=== PATIENT | male | born 1960 | race Two or more races ===

== ENCOUNTER 2021-11-20 12:49 | Inpatient (IN) | payer MEDICAID ==
[~2021-11-20] VITALS: Ht 154.9 cm; Wt 72.5 kg
[2021-11-20 14:21] LABS: Basophils # (auto) 0.1 10 ^3/uL (0-0.2); Basophils % (auto) 1.3 % (0.0-2.0); Eosinophils # (auto) 0.1 10 ^3/uL (0-0.8); Eosinophils % (auto) 1.8 % (0.0-7.0); Hematocrit 45.3 % (41.0-53.0); Hemoglobin 14.6 g/dL (13.5-17.5); Lymphocytes # (auto) 2.2 10 ^3/uL (0.4-5.4); Lymphocytes % (auto) 29.9 % (10.0-50.0); Mean Corpuscular Hemoglobin 28.9 pg (28.0-32.0); Mean Corpuscular Hgb Conc. 32.2 g/dL (32.0-36.0); Mean Corpuscular Volume 89.7 fL (80.0-100.0); Monocytes # (auto) 0.6 10 ^3/uL (0-1.3); Monocytes % (auto) 8.9 % (0.0-12.0); Neutrophils # (auto) 4.2 10 ^3/uL (1.6-8.6); Neutrophils % (auto) 58.1 % (37.0-80.0); Nucleated Red Blood Cells % 0.1 %; Red Blood Cells 5.06 10^6/uL (4.5-5.90); Red Cell Distribution Width 14.3 % (11.8-14.3); White Blood Cell 7.2 10^3/uL (4.4-10.8)
[2021-11-20 14:33] LABS: Albumin 3.2 g/dL (3.4-5.0); Calcium 8.2 mg/dL (8.5-10.1); Potassium 3.9 mmol/L (3.5-5.1)
[2021-11-20 14:36] LABS: BUN/Creatinine Ratio 10.1; Bilirubin, Total 1.1 mg/dL (0.2-1.0); Total Protein 6.7 g/dL (6.4-8.2)
[2021-11-20] MEDS ORDERED: SODIUM CHLORIDE 0.9% 1,000 ML IV ONE ×2 (15:00)
[2021-11-20] MEDS ORDERED: AMIODARONE HCL 150 MG in D5W 5% 100 ML IV ONE ×2 (15:00→18:45)
[2021-11-20] MEDS ORDERED: ASPirin 81 mg TAB PO ONE (15:00)
[2021-11-20] MEDS ORDERED: NITROGLYCERIN 0.4 MG SL TAB SL PRN (17:15)
[2021-11-20] MEDS ORDERED: MORPHINE SULFATE INJ 2 MG/ml SYRG IV PRN ×2 (17:15→18:00)
[2021-11-20] MEDS ORDERED: traMADol HCL 50 MG TAB PO PRN (18:00)
[2021-11-20] MEDS ORDERED: PROMETHAZINE HCL 25 MG/ML 1ML IV PRN (18:00)
[2021-11-20] MEDS ORDERED: DEXTROSE (50%) 50ML SYRG IV PRN (18:00)
[2021-11-20] MEDS ORDERED: TEMAZEPAM 15 MG CAP PO PRN (18:00)
[2021-11-20] MEDS ORDERED: SODIUM CHLORIDE 0.9% 1,000 ML IV SCH (18:00)
[2021-11-20] MEDS ORDERED: LACTULOSE 20Gm/30ML SOLN PO PRN (18:00)
[2021-11-20] MEDS ORDERED: ACETAMINOPHEN 500 MG TAB PO PRN (18:00)
[2021-11-20] MEDS: ENOXAPARIN SOD 80 MG/0.8ML SYRINGE SC SCH ×2 (18:05→23:23)
[2021-11-20] MEDS ORDERED: AMIODARONE 450mg/250ml AE 250 ML IV SCH (19:00)
[2021-11-20] MEDS: PHENYLEPHRINE IV 250 ML IV SCH (23:38)
[2021-11-21] VITALS (46 sets, daily range): BP systolic 84–117; BP diastolic 53–85
[2021-11-21] MEDS: ACCU-CHEK COMFORT CURVE STRIP VI SCH ×5 (01:50→22:34)
[2021-11-21 01:51] LABS: INR 1.39 (0.9-1.15); Partial Thromboplastin Time 27.7 sec (24.6-33.4)
[2021-11-21] MEDS ORDERED: IOHEXOL 350 MG/ML 100ML IJ ONE (03:14)
[2021-11-21] MEDS ORDERED: ALBUMIN 25% 100 ML IV ONE (03:30)
[2021-11-21 05:10] LABS: Albumin 2.6 g/dL (3.4-5.0); Calcium 7.8 mg/dL (8.5-10.1); Potassium 4.2 mmol/L (3.5-5.1)
[2021-11-21 05:15] LABS: BUN/Creatinine Ratio 9.8; Bilirubin, Total 2.4 mg/dL (0.2-1.0); Total Protein 5.6 g/dL (6.4-8.2)
[2021-11-21] MEDS ORDERED: MIDAZOLAM HCL 2MG/2ML 2ml VIAL (1mg/ml) IV ONE (05:21)
[2021-11-21] MEDS ORDERED: MIDAZOLAM HCL 5 MG/ML-1ML VIAL ONE (05:22)
[2021-11-21] MEDS ORDERED: AMIODARONE 450mg/250ml AE 250 ML IV SCH (06:12)
[2021-11-21] MEDS: PHENYLEPHRINE IV 250 ML IV SCH ×5 (07:30→22:35)
[2021-11-21] MEDS ORDERED: ASPirin 81 mg TAB PO SCH (10:00)
[2021-11-21] MEDS: ENOXAPARIN SOD 80 MG/0.8ML SYRINGE SC SCH ×2 (10:07→22:34)
[2021-11-21] MEDS: ASPirin 81 mg TAB PO SCH (10:08)
[2021-11-21] MEDS: PANTOPRAZOLE 40 MG TAB PO SCH (10:08)
[2021-11-21] MEDS ORDERED: AMIODARONE HCL 200 MG TAB PO ONE (15:30)
[2021-11-21] MEDS: AMIODARONE HCL 200 MG TAB PO SCH (22:00)
[2021-11-22] VITALS (89 sets, daily range): BP systolic 95–124; BP diastolic 62–86
[2021-11-22] MEDS: PHENYLEPHRINE IV 250 ML IV SCH ×6 (02:04→23:37)
[2021-11-22] MEDS: ACCU-CHEK COMFORT CURVE STRIP VI SCH ×4 (06:58→22:18)
[2021-11-22] MEDS ORDERED: FUROSEMIDE 20 MG/2 ML VIAL IV ONE ×2 (09:15)
[2021-11-22] MEDS: PANTOPRAZOLE 40 MG TAB PO SCH (09:32)
[2021-11-22] MEDS: ASPirin 81 mg TAB PO SCH (09:32)
[2021-11-22] MEDS: AMIODARONE HCL 200 MG TAB PO SCH ×2 (09:32→22:18)
[2021-11-22] MEDS: ENOXAPARIN SOD 80 MG/0.8ML SYRINGE SC SCH ×2 (09:33→22:18)
[2021-11-22 10:38] LABS: Basophils # (auto) 0 10 ^3/uL (0-0.2); Basophils % (auto) 0.3 % (0.0-2.0); Eosinophils # (auto) 0 10 ^3/uL (0-0.8); Eosinophils % (auto) 0.2 % (0.0-7.0); Hematocrit 46.4 % (41.0-53.0); Hemoglobin 14.8 g/dL (13.5-17.5); Lymphocytes # (auto) 2.4 10 ^3/uL (0.4-5.4); Lymphocytes % (auto) 21.9 % (10.0-50.0); Mean Corpuscular Hemoglobin 29.3 pg (28.0-32.0); Mean Corpuscular Volume 91.5 fL (80.0-100.0); Monocytes # (auto) 1.1 10 ^3/uL (0-1.3); Monocytes % (auto) 9.9 % (0.0-12.0); Neutrophils # (auto) 7.4 10 ^3/uL (1.6-8.6); Neutrophils % (auto) 67.7 % (37.0-80.0); Nucleated Red Blood Cells % 0.1 %; Red Blood Cells 5.07 10^6/uL (4.5-5.90); Red Cell Distribution Width 14.6 % (11.8-14.3)
[2021-11-22 10:55] LABS: Albumin 3.2 g/dL (3.4-5.0); Calcium 7.7 mg/dL (8.5-10.1)
[2021-11-22 11:04] LABS: BUN/Creatinine Ratio 15.2; Total Protein 6.1 g/dL (6.4-8.2)
[2021-11-22 12:57] LABS: Urine Bacteria NONE SEEN /hpf (None Seen); Urine Blood Negative /uL (Negative); Urine Specific Gravity 1.009 (1.001-1.035); Urine WBC <1 /hpf (0 - 3)
[2021-11-22 13:04] LABS: Alcohol, Urine < 3.0 mg/dL (0-10); Amphetamine Screen, Urine NEGATIVE (NEGATIVE); Barbiturate Scree,Urine NEGATIVE (NEGATIVE); Benzodiazephine Screen, Urine NEGATIVE (NEGATIVE); Cannabinoid Screen, Urine NEGATIVE (NEGATIVE); Cocaine Screen, Urine NEGATIVE (NEGATIVE); Opiate Scree,Urine NEGATIVE (NEGATIVE); Phencyclidine Screen, Urine NEGATIVE (NEGATIVE)
[2021-11-22] MEDS ORDERED: FUROSEMIDE 20 MG/2 ML VIAL IV SCH (18:00)
[2021-11-22] MEDS: FUROSEMIDE 20 MG/2 ML VIAL IV SCH (18:22)
[2021-11-23] VITALS (87 sets, daily range): BP systolic 92–117; BP diastolic 62–89
[2021-11-23] MEDS: PHENYLEPHRINE IV 250 ML IV SCH ×5 (03:39→21:07)
[2021-11-23 03:56] LABS: Basophils # (auto) 0.3 10 ^3/uL (0-0.2); Basophils % (auto) 2.4 % (0.0-2.0); Eosinophils # (auto) 0 10 ^3/uL (0-0.8); Eosinophils % (auto) 0.2 % (0.0-7.0); Hematocrit 46.2 % (41.0-53.0); Lymphocytes % (auto) 24.9 % (10.0-50.0); Mean Corpuscular Hemoglobin 29.3 pg (28.0-32.0); Mean Corpuscular Hgb Conc. 32.3 g/dL (32.0-36.0); Mean Corpuscular Volume 90.6 fL (80.0-100.0); Monocytes # (auto) 1.2 10 ^3/uL (0-1.3); Monocytes % (auto) 9.9 % (0.0-12.0); Neutrophils # (auto) 7.7 10 ^3/uL (1.6-8.6); Neutrophils % (auto) 62.6 % (37.0-80.0); Nucleated Red Blood Cells % 0.3 %; Red Cell Distribution Width 14.6 % (11.8-14.3); White Blood Cell 12.3 10^3/uL (4.4-10.8)
[2021-11-23 04:15] LABS: BUN/Creatinine Ratio 20.1
[2021-11-23] MEDS: FUROSEMIDE 20 MG/2 ML VIAL IV SCH ×2 (05:40→17:28)
[2021-11-23] MEDS: ACCU-CHEK COMFORT CURVE STRIP VI SCH ×4 (06:49→21:39)
[2021-11-23] MEDS: ASPirin 81 mg TAB PO SCH (09:41)
[2021-11-23] MEDS: AMIODARONE HCL 200 MG TAB PO SCH ×2 (09:41→21:33)
[2021-11-23] MEDS: PANTOPRAZOLE 40 MG TAB PO SCH (09:41)
[2021-11-23] MEDS: ENOXAPARIN SOD 80 MG/0.8ML SYRINGE SC SCH ×2 (09:41→21:33)
[2021-11-24] VITALS (95 sets, daily range): BP systolic 88–112; BP diastolic 61–87
[2021-11-24] MEDS: PHENYLEPHRINE IV 250 ML IV SCH ×2 (02:38→22:00)
[2021-11-24 04:16] LABS: Basophils # (auto) 0.1 10 ^3/uL (0-0.2); Eosinophils # (auto) 0.1 10 ^3/uL (0-0.8); Eosinophils % (auto) 0.5 % (0.0-7.0); Hemoglobin 14.4 g/dL (13.5-17.5); Lymphocytes # (auto) 2.2 10 ^3/uL (0.4-5.4); Lymphocytes % (auto) 19.3 % (10.0-50.0); Mean Corpuscular Hemoglobin 29.3 pg (28.0-32.0); Mean Corpuscular Hgb Conc. 32.7 g/dL (32.0-36.0); Mean Corpuscular Volume 89.8 fL (80.0-100.0); Monocytes % (auto) 9.1 % (0.0-12.0); Neutrophils # (auto) 7.9 10 ^3/uL (1.6-8.6); Neutrophils % (auto) 70.1 % (37.0-80.0); Nucleated Red Blood Cells % 0.7 %; Red Cell Distribution Width 14.5 % (11.8-14.3); White Blood Cell 11.3 10^3/uL (4.4-10.8)
[2021-11-24 04:32] LABS: BUN/Creatinine Ratio 23.7; Calcium 7.6 mg/dL (8.5-10.1)
[2021-11-24] MEDS: ACCU-CHEK COMFORT CURVE STRIP VI SCH ×4 (05:21→21:54)
[2021-11-24] MEDS: FUROSEMIDE 20 MG/2 ML VIAL IV SCH ×2 (06:05→17:31)
[2021-11-24] MEDS: PANTOPRAZOLE 40 MG TAB PO SCH (08:55)
[2021-11-24] MEDS: AMIODARONE HCL 200 MG TAB PO SCH ×2 (08:55→21:54)
[2021-11-24] MEDS: ASPirin 81 mg TAB PO SCH (08:55)
[2021-11-24] MEDS: ENOXAPARIN SOD 80 MG/0.8ML SYRINGE SC SCH ×2 (08:56→21:54)
[2021-11-24] MEDS: InsuLIN REG 1unit/0.01ml Soln (100units/ml) SC SCH ×3 (11:30→21:58)
[2021-11-25] VITALS (79 sets, daily range): BP systolic 94–119; BP diastolic 63–87
[2021-11-25 03:47] LABS: Basophils # (auto) 0.1 10 ^3/uL (0-0.2); Basophils % (auto) 1.3 % (0.0-2.0); Eosinophils # (auto) 0.2 10 ^3/uL (0-0.8); Eosinophils % (auto) 1.9 % (0.0-7.0); Hematocrit 43.4 % (41.0-53.0); Hemoglobin 14.2 g/dL (13.5-17.5); Lymphocytes # (auto) 2.2 10 ^3/uL (0.4-5.4); Lymphocytes % (auto) 26.2 % (10.0-50.0); Mean Corpuscular Hemoglobin 29.5 pg (28.0-32.0); Mean Corpuscular Hgb Conc. 32.6 g/dL (32.0-36.0); Mean Corpuscular Volume 90.3 fL (80.0-100.0); Monocytes % (auto) 11.5 % (0.0-12.0); Neutrophils # (auto) 4.9 10 ^3/uL (1.6-8.6); Neutrophils % (auto) 59.1 % (37.0-80.0); Nucleated Red Blood Cells % 0.3 %; Red Cell Distribution Width 14.5 % (11.8-14.3); White Blood Cell 8.3 10^3/uL (4.4-10.8)
[2021-11-25 04:09] LABS: Albumin 2.8 g/dL (3.4-5.0); Calcium 7.6 mg/dL (8.5-10.1); Potassium 3.8 mmol/L (3.5-5.1)
[2021-11-25 04:18] LABS: BUN/Creatinine Ratio 17.4; Bilirubin, Total 2.3 mg/dL (0.2-1.0); Total Protein 5.7 g/dL (6.4-8.2)
[2021-11-25] MEDS: FUROSEMIDE 20 MG/2 ML VIAL IV SCH ×2 (05:38→18:06)
[2021-11-25] MEDS: InsuLIN REG 1unit/0.01ml Soln (100units/ml) SC SCH ×4 (05:39→23:11)
[2021-11-25] MEDS: ACCU-CHEK COMFORT CURVE STRIP VI SCH ×4 (05:39→23:12)
[2021-11-25] MEDS: AMIODARONE HCL 200 MG TAB PO SCH ×2 (10:52→23:08)
[2021-11-25] MEDS: ASPirin 81 mg TAB PO SCH (10:53)
[2021-11-25] MEDS: PANTOPRAZOLE 40 MG TAB PO SCH (10:53)
[2021-11-25] MEDS: ENOXAPARIN SOD 80 MG/0.8ML SYRINGE SC SCH (10:53)
[2021-11-25 11:31] LABS: Hepatitis B Surface Antibody Positive (Negative)
[2021-11-25 12:02] LABS: Hepatitis A Total Antibody Positive (Negative)
[2021-11-25 13:33] LABS: Hepatitis C Antibody Negative (Negative)
[2021-11-25] MEDS: CARVEDILOL 3.125 MG TAB PO SCH (23:09)
[2021-11-25] MEDS: SACUBITRIL-VALSARTAN 24mg/26mg TAB PO SCH (23:10)
[2021-11-25] MEDS: APIXABAN 5 MG TAB PO SCH (23:10)
[2021-11-26 05:00] VITALS: BP 103/71
[2021-11-26] MEDS: FUROSEMIDE 20 MG/2 ML VIAL IV SCH ×2 (05:28→18:00)
[2021-11-26] MEDS: InsuLIN REG 1unit/0.01ml Soln (100units/ml) SC SCH ×3 (05:47→17:00)
[2021-11-26] MEDS: ACCU-CHEK COMFORT CURVE STRIP VI SCH ×3 (05:48→17:00)
[2021-11-26 05:53] LABS: BUN/Creatinine Ratio 15.4; Calcium 8.1 mg/dL (8.5-10.1); Potassium 3.6 mmol/L (3.5-5.1)
[2021-11-26 06:03] LABS: Basophils # (auto) 0.1 10 ^3/uL (0-0.2); Basophils % (auto) 1.1 % (0.0-2.0); Eosinophils # (auto) 0.2 10 ^3/uL (0-0.8); Eosinophils % (auto) 2.6 % (0.0-7.0); Hematocrit 42.7 % (41.0-53.0); Hemoglobin 14.1 g/dL (13.5-17.5); Lymphocytes # (auto) 1.9 10 ^3/uL (0.4-5.4); Lymphocytes % (auto) 28.3 % (10.0-50.0); Mean Corpuscular Hemoglobin 29.7 pg (28.0-32.0); Mean Corpuscular Hgb Conc. 33.1 g/dL (32.0-36.0); Mean Corpuscular Volume 89.6 fL (80.0-100.0); Monocytes # (auto) 0.6 10 ^3/uL (0-1.3); Monocytes % (auto) 8.9 % (0.0-12.0); Neutrophils % (auto) 59.1 % (37.0-80.0); Nucleated Red Blood Cells % 0.3 %; Red Blood Cells 4.77 10^6/uL (4.5-5.90); Red Cell Distribution Width 14.6 % (11.8-14.3); White Blood Cell 6.8 10^3/uL (4.4-10.8)
[2021-11-26 09:00] VITALS: BP 95/64
[2021-11-26] MEDS: CARVEDILOL 3.125 MG TAB PO SCH (10:00)
[2021-11-26] MEDS: SACUBITRIL-VALSARTAN 24mg/26mg TAB PO SCH (10:00)
[2021-11-26] MEDS: ASPirin 81 mg TAB PO SCH (11:52)
[2021-11-26] MEDS: AMIODARONE HCL 200 MG TAB PO SCH (11:53)
[2021-11-26] MEDS: APIXABAN 5 MG TAB PO SCH (11:55)
[2021-11-26] MEDS: PANTOPRAZOLE 40 MG TAB PO SCH (11:56)
[2021-11-26] MEDS ORDERED: FURO1TAB33 PO (12:17)
[2021-11-26] MEDS ORDERED: METF-370 PO (12:17)
[2021-11-26] MEDS ORDERED: CAR3125T PO (12:17)
[2021-11-26] MEDS ORDERED: APIX5TAB PO (12:17)
[2021-11-26] MEDS ORDERED: PANT40T PO (12:17)
[2021-11-26] MEDS ORDERED: SACU1TAB PO (12:17)
[2021-11-26] MEDS ORDERED: AMIO200T33 PO (12:17)
[2021-11-26] MEDS ORDERED: ASPI-325 PO (12:17)
[2021-11-26 13:00] VITALS: BP 101/63
[2021-11-26 17:00] VITALS: BP 127/69
[2021-11-26 18:13] VITALS: BP 127/69
== END 2021-11-26 18:40 | disposition home or self-care (01) | DRG 201 ==
LOC: ER 12:49 → EDBD 12:49 → TELE 17:02 → ICU WEST 11-21 12:51 → TELE-EAST 11-25 22:10
PROVIDERS: ADMIT Internal Medicine; ATTEND Internal Medicine Pulmonary Disease
PROC: 5A09357 Assistance with Respiratory Ventilation, Less than 24 Consecutive Hours, Continuous Positive Airway Pressure (ICD-10-PCS; principal; 2021-11-21)
DX: I48.91 Unspecified atrial fibrillation (principal); I50.21 Acute systolic (congestive) heart failure; N17.9 Acute kidney failure, unspecified; E44.1 Mild protein-calorie malnutrition; R18.8 Other ascites; I95.9 Hypotension, unspecified; K76.1 Chronic passive congestion of liver; I48.92 Unspecified atrial flutter; I47.1 Supraventricular tachycardia; Z20.822 Contact with and (suspected) exposure to COVID-19; E11.65 Type 2 diabetes mellitus with hyperglycemia; E66.9 Obesity, unspecified; K57.90 Diverticulosis of intestine, part unspecified, without perforation or abscess without bleeding; Z79.84 Long term (current) use of oral hypoglycemic drugs; Z68.29 Body mass index [BMI] 29.0-29.9, adult
CPT/HCPCS: 36415; 36600; 71045; 71275; 76705; 80048; 80053; 80061; 80307; 81001; 82728; 82805; 82962; 83036; 83735; 83880; 84443; 84484; 85025; 85379; 85610; 85652; 85730; 86141; 86704; 86706; 86708; 86803; 87340; 93005; 93306; 94660; 96361; 96365; 96366; 96367; 96375; G0378; J1815; J2250; J7060; P9047